=== PATIENT | female | born 1975 | race Caucasian/White ===

== ENCOUNTER 2017-04-22 17:42 | Emergency (ER) | payer OTHER ==
[2017-04-22 17:46] VITALS: BP 161/79; PULSE 76; TEMP 97.9; BMI 45.7
[2017-04-22] MEDS ORDERED: IBUPROFEN 400 MG TABLET (FP) PO ONE ×2 (18:15→18:23)
--- NOTE | 2017-04-22 18:19 | PDOC ---
History of Present Illness - General Chief Complaint: Injury Stated Complaint: INJURY Time Seen by Provider: 04/22/17 18:04 History Source: Patient - History of Present Illness Occurred: reports: other Severity: Yes: moderate Lower Extremity Pain Location: right: ankle Method of Injury: Yes: other Past History - Past Medical History Allergies/Adverse Reactions: Allergies Allergy/AdvReac Type Severity Reaction Status Date / Time No Known Allergies Allergy Verified 04/22/17 17:43 Home Medications: Ambulatory Orders Citalopram Hydrobromide [Celexa -] 20 mg PO DAILY 11/19/13 Divalproex [Depakote -] 250 mg PO DAILY 11/19/13 Simvastatin [Zocor -] 20 mg PO HS 11/19/13 Cyclobenzaprine HCl [Flexeril -] 10 mg PO TID PRN #21 tablet 11/06/14 Hydrochlorothiazide [Hctz -] 12.5 mg PO DAILY 11/06/14 Naproxen [Naprosyn -] 500 mg PO BID PRN #14 tablet 11/06/14 Hypercholesterolemia: Yes Psychiatric Problems: Yes (DEPRESSION) - Surgical History Cholecystectomy: Yes - Reproductive History (#): 4 Para: 3 - Psycho/Social/Smoking Cessation Hx Anxiety: No Suicidal Ideation: No Smoking History: Current every day smoker Have you smoked in the past 12 months: Yes Number of Cigarettes Smoked Daily: 10 Information on smoking cessation initiated: Yes 'Breaking Loose' booklet given: 04/22/17 Hx Alcohol Use: No Drug/Substance Use Hx: No Substance Use Type: None Review of Systems - Review of Systems Constitutional: No: Chills, Fever Musculoskeletal: Yes: Joint Pain, Joint Swelling *Physical Exam - Vital Signs Last Vital Signs Temp Pulse Resp BP Pulse Ox 97.9 F 76 18 161/79 100 04/22/17 17:44 04/22/17 17:44 04/22/17 17:44 04/22/17 17:44 04/22/17 17:44 - Physical Exam General Appearance: Yes: Appropriately Dressed, Moderate Distress HEENT: positive: Normal Voice Neck: positive: Supple Respiratory/Chest: negative: Respiratory Distress Extremity: positive: Tender, Swelling (minimal swelling to medial malleolus of R ankle, no deformity) Integumentary: positive: Dry, Warm Neurologic: positive: Fully Oriented, Alert, Normal Mood/Affect ED Treatment Course - RADIOLOGY Radiology Studies Ordered: Category Date Time Status ANKLE & FOOT-RIGHT* [RAD] Stat Radiology 04/22/17 18:15 Ordered Medical Decision Making - Medical Decision Making 04/22/17 18:16 41 yo F, no sig hx, p/w R ankle pain and swelling. Pt states 4 days ago, she "snapped" her ankle while getting up from a seated position. Is able to bear weight but painful See exam M/l ankle sprain -XR -pain control 04/22/17 18:18 04/22/17 18:50 XR neg for fx. Derrick placed and pt given cane. Discharged w/ supportive tx and ortho f/u as needed *DC/Admit/Observation/Transfer Diagnosis at time of Disposition: Ankle sprain Qualifiers: Encounter type: initial encounter Involved ligament of ankle: unspecified ligament Laterality: right Qualified Code(s): S93.401A - Sprain of unspecified ligament of right ankle, initial encounter - Discharge Dispostion Disposition: HOME Condition at time of disposition: Good - Patient Instructions Printed Discharge Instructions: Ankle Sprain Additional Instructions: Rest, ice area, elevate, wear derrick bandage for comfort, use cane as needed and take 600-800mg of motrin as needed Follow up with Dr Lucas of orthopedics if pain persists after 2 weeks
== END 2017-04-22 19:12 | disposition home or self-care (01) ==
LOC: JERFT 17:42
DX: S93.401A Sprain of unspecified ligament of right ankle, initial encounter (principal); X50.1XXA Overexertion from prolonged static or awkward postures, initial encounter; Y93.89 Activity, other specified; Y92.89 Other specified places as the place of occurrence of the external cause; E78.00 Pure hypercholesterolemia, unspecified; F32.9 Major depressive disorder, single episode, unspecified; F17.210 Nicotine dependence, cigarettes, uncomplicated
CPT/HCPCS: 73610-TC-RT; 73630-TC-RT; 99281-25

== ENCOUNTER 2024-05-07 17:51 | Emergency (ER) | payer OTHER ==
[2024-05-07 17:58] VITALS: BP 119/86; PULSE 93; RESP 18; TEMP 98.3; BMI 45.7
[2024-05-07] MEDS ORDERED: KETOROLAC TROMETHAMINE 30 MG/1 ML VIAL ONE (20:07)
[2024-05-07 20:13] LABS: HIV INTERPRETATION NEGATIVE (NEGATIVE)
[2024-05-07] MEDS: KETOROLAC TROMETHAMINE 30 MG/1 ML VIAL IM ONE (20:16)
== END 2024-05-07 21:04 | disposition home or self-care (01) ==
LOC: JERFT 17:51 → JER 17:51 → JERFT 21:04
PROC: 3E0233Z Introduction of Anti-inflammatory into Muscle, Percutaneous Approach (ICD-10-PCS; principal; 2024-05-07)
DX: M25.562 Pain in left knee (principal); W01.0XXA Fall on same level from slipping, tripping and stumbling without subsequent striking against object, initial encounter
CPT/HCPCS: 36415; 73562-TC-LT-FY; 86803; 87389; 99284-25

== ENCOUNTER 2024-07-20 08:02 | Day surgery (SDC) | payer OTHER ==
[2024-07-13 10:45] VITALS: BMI 44.2
[2024-07-20] MEDS ORDERED: ONDANSETRON 4 MG/2 ML VIAL ONE (08:08)
[2024-07-20] MEDS ORDERED: DEXAMETHASONE SOD PHOSPHATE 4 MG/1 ML VIAL ONE (08:08)
[2024-07-20] MEDS ORDERED: ceFAZolin SODIUM 1 GM VIAL ONE (08:08)
[2024-07-20] MEDS ORDERED: METOCLOPRAMIDE HCL INJECTION 10 MG/2 ML VIAL ONE (08:08)
[2024-07-20] MEDS ORDERED: SODIUM CHLORIDE 0.9% P/F 10 ML VIAL IJ ONE (08:09)
[2024-07-20] MEDS ORDERED: PROPOFOL 20 ML ONE ×2 (08:11→09:21)
[2024-07-20] MEDS ORDERED: MIDAZOLAM HCL 2 MG/2 ML SINGLE DOSE VIAL ONE (08:13)
[2024-07-20] MEDS ORDERED: ACETAMINOPHEN INJECTION 100 ML ONE (08:41)
[2024-07-20] MEDS ORDERED: ONDANSETRON 4 MG/2 ML VIAL IVPUSH PRN (08:44)
[2024-07-20] MEDS ORDERED: oxyCODONE HCL 5 MG TABLET PO PRN (08:44)
[2024-07-20] MEDS ORDERED: LACTATED RINGERS SOLUTION 1,000 ML IV SCH (08:45)
[2024-07-20] MEDS ORDERED: BUPIVACAINE HCL/PF 2.5 MG/ML - 30 ML VIAL IJ ONE (08:49)
[2024-07-20] MEDS: ceFAZolin SODIUM 1 GM VIAL IVPB ONE (09:05)
[2024-07-20] MEDS ORDERED: ESMOLOL HCL 100,000 MCG/10 ML VIAL ONE (09:37)
[2024-07-20] MEDS ORDERED: LIDOCAINE HCL/PF 2% SDV 5ML VIAL ONE (09:42)
[2024-07-20] MEDS: BUPIVACAINE HCL/PF 0.25% (2.5MG/ML) 10 ML VIAL IJ ONE (09:42)
[2024-07-20 11:24] VITALS: RESP 19; TEMP 97.7
[2024-07-20 11:53] VITALS: BP 138/70; PULSE 87
== END 2024-07-20 11:40 | disposition home or self-care (01) ==
LOC: FASU 08:02
PROVIDERS: ATTEND Orthopaedic Surgery Sports Medicine
PROC: 0SBD4ZZ Excision of Left Knee Joint, Percutaneous Endoscopic Approach (ICD-10-PCS; 2024-07-20)
PROC: 0SBD4ZZ Excision of Left Knee Joint, Percutaneous Endoscopic Approach (ICD-10-PCS; principal; 2024-07-20 09:20)
DX: S83.242A Other tear of medial meniscus, current injury, left knee, initial encounter (principal); S83.282A Other tear of lateral meniscus, current injury, left knee, initial encounter; M94.262 Chondromalacia, left knee; M65.862 Other synovitis and tenosynovitis, left lower leg; X58.XXXA Exposure to other specified factors, initial encounter; Y93.9 Activity, unspecified; Y92.9 Unspecified place or not applicable
CPT/HCPCS: 81025; 94760; J0131